=== PATIENT | male | born 1985 | race Hispanic/Latino ===

== ENCOUNTER 2018-01-14 14:00 | Emergency (ER) | payer SELFPAY | END 2018-01-14 15:17 | disposition home or self-care (01) | LOC: ERS 14:00 | DX: S16.1XXA Strain of muscle, fascia and tendon at neck level, initial encounter (principal); V47.5XXA Car driver injured in collision with fixed or stationary object in traffic accident, initial encounter | CPT/HCPCS: 99283 ==